=== PATIENT | female | born 1985 | race Two or more races ===

== ENCOUNTER 2019-05-23 07:44 | Emergency (ER) | payer MEDICAID ==
[~2019-05-23] VITALS: Ht 160 cm; Wt 63.5 kg
[2019-05-23 07:55] VITALS: BP 105/72
[2019-05-23 08:34] LABS: APPEARANCE,URINE SLIGHTLY CLOUDY; BASOPHILS % (AUTO) 0.5 % (0.0-2.0); BILIRUBIN, URINE NEGATIVE (NEGATIVE); EOSINOPHILS % (AUTO) 0.3 % (0.0-3.0); GLUCOSE, URINE (UA) NEGATIVE (NEGATIVE); HEMATOCRIT 42.2 % (37.0-47.0); KETONES,URINE NEGATIVE (NEGATIVE); LEUKOCYTE ESTERASE ,URINE 1+ (NEGATIVE); LYMPHOCYTES % (AUTO) 17.8 % (20.0-45.0); MEAN CORPUSCULAR VOLUME 91 FL (80-99); NEUTROPHILS % (AUTO) 76.4 % (45.0-75.0); NITRITE,URINE NEGATIVE (NEGATIVE); PH,URINE 6 (4.5-8.0); PLATELET COUNT 250 K/UL (150-450); PROTEIN,URINE NEGATIVE (NEGATIVE); RED BLOOD COUNT 4.64 M/UL (4.20-5.40); RED CELL DISTRIBUTION WIDTH 11.8 % (11.6-14.8); UROBILINOGEN,URINE NORMAL MG/DL (0.0-1.0); WHITE BLOOD COUNT 8.9 K/UL (4.8-10.8)
--- NOTE | 2019-05-23 08:35 | Emergency Room Report ---
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 Patient also reports palpitations, low-grade frontal headache, but denies any blurred vision, slurred speech, facial numbness , tingling, weakness, droop, and reports no extremity weakness either. She reports that it numbness and tingling symptoms are resolved now, but occur intermittently and just started this morning. She reports mild abdominal discomfort that is diffuse in her abdomen, but cannot think of any obvious inciting factors, or relationship with food, and denies fevers, chest pain, shortness of breath, symptoms, urinary symptoms, back pain. Did not try medications for symptoms. Does report her symptoms are now improved compared to earlier this morning. Allergies: Coded Allergies: No Known Allergies (Unverified , 05/23/19) Patient History Limited by: language barrier - but language interpreter line used (phone interpretor, bc video not working) Last Menstrual Period: 05/08/2019 Reviewed Nursing Documentation: PMH: Agreed; PSxH: Agreed Nursing Documentation-PMH Past Medical History: No Stated History Review of Systems All Other Systems: negative except mentioned in HPI Physical Exam Vital Signs Date Time Temp Pulse Resp B/P (MAP) Pulse Ox O2 Delivery O2 Flow Rate FiO2 05/23/19 07:55 97.7 68 16 105/72 (83) 99 Room Air Sp02 EP Interpretation: reviewed, normal General Appearance: no apparent distress, alert, non-toxic Head: normocephalic Eyes: bilateral eye normal inspection, bilateral eye PERRL, bilateral eye EOMI ENT: normal ENT inspection, hearing grossly normal, normal pharynx, no angioedema, normal voice, moist mucus membranes Neck: normal inspection, full range of motion, supple, supple/symm/no masses Respiratory: chest non-tender, lungs clear, normal breath sounds, chest symmetrical, palpation of chest normal Cardiovascular #1: normal peripheral pulses, regular rate, rhythm Cardiovascular #2: 2+ radial (R), 2+ radial (L) Gastrointestinal: normal inspection, non tender, soft, no mass, no guarding, no rebound Rectal: deferred Genitourinary: normal inspection, no CVA tenderness Musculoskeletal: back normal, normal range of motion, no calf tenderness, gait/ station normal, non-tender Neurologic: alert, motor strength/tone normal, dish machine operator III-XII nml as tested, oriented x3, sensory intact, cerebellar normal, responsive, speech normal Psychiatric: normal inspection, judgement/insight normal, memory normal, anxious Lymphatic: no adenopathy Medical Decision Making Diagnostic Impression: Primary Impression: Anxiety Additional Impressions: Vomiting UTI (urinary tract infection) ER Course Patient's had unremarkable work-up including test, basic labs, and clinical examination. Appears slightly anxious, and reported that she had a facial droop a year ago, but no droop is seen on examination, and patient has a completely normal neurologic system examination including cranial nerves, deep tendon reflexes, gait, sensory and motor testing. She is nondiabetic, has no other medical problems, is not any drugs, and I have extremely low suspicion for any acute pathology. Considering differential diagnosis: UTI, pyelonephritis, stroke, brain mass, but based on history and physical examination, have low suspicion for any serious illness, urinalysis positive for UTI. Will discharge with Macrobid and reassurance. She understands to follow-up with PMD in the next few days for reevaluation. Last Vital Signs Date Time Temp Pulse Resp B/P (MAP) Pulse Ox O2 Delivery O2 Flow Rate FiO2 05/23/19 08:05 68 16 Room Air 05/23/19 07:55 97.7 105/72 99 Disposition: HOME, SELF-CARE Condition: Stable Scripts No Active Prescriptions or Reported Meds Referrals: NOT CHOSEN [place]/,REFERRING (PCP) ZAN OPE M.D May 23, 2019 08:35
[2019-05-23 08:36] LABS: COLOR,URINE YELLOW
[2019-05-23 08:38] LABS: ANION GAP 7 mmol/L (5-15); BLOOD UREA NITROGEN 10 mg/dL (7-18); CALCIUM 8.7 MG/DL (8.5-10.1); CARBON DIOXIDE 25 MMOL/L (21-32); CHLORIDE 105 MMOL/L (98-107); CREATININE 0.6 MG/DL (0.55-1.30); POTASSIUM 3.9 MMOL/L (3.5-5.1); SODIUM 137 MMOL/L (136-145)
[2019-05-23 08:41] LABS: ALANINE AMINOTRANSFERASE 31 U/L (12-78); ALBUMIN 3.8 G/DL (3.4-5.0); ALKALINE PHOSPHATASE 73 U/L (46-116); ASPARTATE AMINO TRANSFERASE 15 U/L (15-37); BILIRUBIN,TOTAL 0.4 MG/DL (0.2-1.0)
[2019-05-23] MEDS ORDERED: NITROFURANTOIN100 M2 ORAL (09:06)
[2019-05-23] MEDS ORDERED: ZOFRAN4 M3 ORAL (09:06)
[2019-05-23 09:18] VITALS: BP 105/72
== END 2019-05-23 09:18 | disposition home or self-care (01) ==
LOC: EDSEX 07:44 → EMR 08:19
DX: F41.9 Anxiety disorder, unspecified (principal); R11.2 Nausea with vomiting, unspecified; N39.0 Urinary tract infection, site not specified
CPT/HCPCS: 36415; 80053; 81003; 81025; 83690; 85025; Z7502; 99283